=== PATIENT | male | born 1955 | race Caucasian/White ===

== ENCOUNTER 2017-12-31 21:37 | Emergency (ER) | payer OTHER ==
[2017-12-31 22:15] LABS: APPEARANCE, URINE CLEAR (CLEAR); BACTERIA, URINE AUTO NEGATIVE (NEGATIVE); BILIRUBIN, URINE AUTO NEGATIVE (NEGATIVE); BLOOD, URINE BLOOD NEGATIVE (NEGATIVE); COLOR, URINE YELLOW (YELLOW); GLUCOSE, URINE (UA) AUTO NEGATIVE (NEGATIVE); KETONE, URINE AUTO NEGATIVE (NEGATIVE); LEUKOCYTE ESTERASE, URINE AUTO NEGATIVE (NEGATIVE); MUCUS, URINE SMALL (NEGATIVE); NITRITE, URINE AUTO NEGATIVE (NEGATIVE); PROTEIN, URINE AUTO NEGATIVE (NEGATIVE); RBC, URINE AUTO 1 /HPF (0-3); SPECIFIC GRAVITY URINE AUTO 1.016 (1.002-1.035); SQUAMOUS EPITHELIAL CELL UR AU 0 /HPF (0-6); WBC, URINE AUTO 0 /HPF (0-3)
[2018-01-01 00:46] LABS: BASO % 0.7 % (0.0-1.0); EOS # 0.1 10^3/uL (0.0-0.50); EOS % 1.3 % (0.0-3.0); HEMOGLOBIN 15.4 g/dl (14.0-18.0); IMMATURE GRANULOCYTE % 0.4 % (0-3.0); LYMPH # 1.4 10^3/uL (1.5-4.5); LYMPH % 26.6 % (24.0-44.0); MEAN CORPUSCULAR HEMOGLOBIN 31.8 pg (27.0-33.0); MEAN CORPUSCULAR HGB CONC 34.2 g/dl (32.0-36.5); MEAN CORPUSCULAR VOLUME 92.8 fl (80.0-96.0); MONO # 0.5 10^3/uL (0.0-0.8); MONO % 10.1 % (0.0-5.0); NEUTROPHILS # 3.3 10^3/uL (1.8-7.7); NEUTROPHILS % 60.9 % (36.0-66.0); PLATELET COUNT, AUTOMATED 155 10^3/uL (150-450); RED BLOOD COUNT 4.85 10^6/uL (4.30-6.10); RED CELL DISTRIBUTION WIDTH 12.1 % (11.5-14.5); WHITE BLOOD COUNT 5.4 10^3/uL (4.0-10.0)
[2018-01-01] MEDS: NS 1,000 ML IV (00:48)
[2018-01-01 01:40] LABS: ALBUMIN 3.3 GM/DL (3.2-5.2); ALBUMIN/GLOBULIN RATIO 1.22 (1.00-1.93); ALKALINE PHOSPHATASE 69 U/L (45-117); ALT/SGPT 28 U/L (12-78); AMYLASE 37 U/L (25-115); ANION GAP 6 MEQ/L (8-16); AST/SGOT 17 U/L (7-37); BILIRUBIN,DIRECT 0.2 MG/DL (0.0-0.2); BILIRUBIN,TOTAL 0.6 MG/DL (0.2-1.0); BLOOD UREA NITROGEN 17 MG/DL (7-18); CALCIUM LEVEL 7.8 MG/DL (8.8-10.2); CARBON DIOXIDE LEVEL 27 MEQ/L (21-32); CHLORIDE LEVEL 108 MEQ/L (98-107); GLOMERULAR FILTRATION RATE > 60.0 (>49); GLUCOSE, FASTING 106 MG/DL (70-100); LIPASE 189 U/L (73-393); SODIUM LEVEL 141 MEQ/L (136-145)
[2018-01-01] MEDS: PANTOPRAZOLE 40MG INJ (PROTONIX) (C9113) IV (02:05)
[2018-01-01] MEDS: KETOROLAC 30 MG/ML VIAL (J1885) IV (02:07)
== END 2018-01-01 02:23 | disposition home or self-care (01) ==
LOC: M ED 01-01 02:23
DX: R10.32 Left lower quadrant pain (principal); R11.2 Nausea with vomiting, unspecified; K21.9 Gastro-esophageal reflux disease without esophagitis; E78.00 Pure hypercholesterolemia, unspecified; Z79.899 Other long term (current) drug therapy; Z88.1 Allergy status to other antibiotic agents; Z88.2 Allergy status to sulfonamides
CPT/HCPCS: C9113

== ENCOUNTER 2019-01-18 09:05 | Emergency (ER) | payer OTHER ==
[~2019-01-18] VITALS: Ht 177.8 cm; Wt 86.4 kg
[~2019-01-18 09:05] MED LIST: ATOR1TAB21 PO; FLOM0.4C39 PO; OMEP40CA2 PO
[2019-01-18] MEDS: METHOCARBAMOL 500 MG TAB PO ONE (09:37)
[2019-01-18] MEDS ORDERED: SOMA250T PO (10:26)
[2019-01-18] MEDS ORDERED: PRED10TA2 PO (10:26)
--- NOTE | 2019-01-18 10:33 | REP ---
CT lumbar spine: History: Vertebral point tenderness after a fall. Comparison is made with imaging from CT study of the abdomen and pelvis dated January 01, 2018. Technique: Helical scanning is acquired. 4 mm axial images and multiplanar re-formation images are generated. CT findings: Lumbar vertebral body heights are preserved. Alignment is normal. No fracture or collapse is seen. Pedicles and posterior elements are intact. No posterior element fracture is seen. There is no evidence of spondylolysis or spondylolisthesis. Alignment is normal. There is degenerative disc disease at each lumbar level with anterior osteophyte formation. Disc space narrowing is most pronounced L5-S1 and L4-5. There is a vacuum phenomenon in the L5-S1 disc. No neural foraminal narrowing is seen. There is diffuse disc bulging at L5-S1 and there is mild central canal stenosis at L5-S1 due to facet hypertrophy and ligamentum flavum hypertrophy in addition to the disc bulging. At L4-5, there is moderate central canal stenosis due to disc bulging ligamentum flavum and facet hypertrophy. No neural foraminal narrowing is appreciated. At L3-4, canal size is borderline. There is mild diffuse disc bulging. At L2-3, there is mild central canal stenosis due to diffuse disc bulging. At L1-2, there is minimal diffuse disc bulging. Impression: No traumatic abnormality noted. Central canal stenosis at multiple levels including L4-5 and L5-S1. Borderline canal size at L3-4. Osteoarthritic facet and diffuse degenerative disc disease. Electronically Signed by Francisco Moy MD 01/18/2019 07:57 P
[2019-01-18 10:40] VITALS: BP 174/96
== END 2019-01-18 10:41 | disposition home or self-care (01) ==
LOC: M ED 09:05
DX: M48.061 Spinal stenosis, lumbar region without neurogenic claudication (principal); M62.830 Muscle spasm of back; E78.5 Hyperlipidemia, unspecified; N40.0 Benign prostatic hyperplasia without lower urinary tract symptoms; Z87.891 Personal history of nicotine dependence; Z79.899 Other long term (current) drug therapy; Z88.1 Allergy status to other antibiotic agents; Z88.2 Allergy status to sulfonamides

== ENCOUNTER 2019-01-20 10:23 | Emergency (ER) | payer OTHER ==
[~2019-01-20] VITALS: Ht 175.3 cm; Wt 86.4 kg
[~2019-01-20 10:23] MED LIST changes: +PRED10TA2 PO; +SOMA250T PO
[2019-01-20] MEDS ORDERED: VALI5TAB PO (11:59)
[2019-01-20] MEDS ORDERED: PERCOCET 5MG/325MG TAB PO ONE (12:00)
[2019-01-20] MEDS ORDERED: KETOROLAC 60 MG/2 ML VIAL (J1885) IM ONE (12:00)
[2019-01-20] MEDS ORDERED: diazePAM 5 MG TAB PO ONE (12:00)
[2019-01-20 12:16] VITALS: BP 187/84
[2019-01-20] MEDS ORDERED: ROLLMIS8 XX ×2 (12:24→14:52)
== END 2019-01-20 12:33 | disposition home or self-care (01) ==
LOC: M ED 10:23
DX: M51.16 Intervertebral disc disorders with radiculopathy, lumbar region (principal); E78.00 Pure hypercholesterolemia, unspecified; Z88.1 Allergy status to other antibiotic agents; Z88.2 Allergy status to sulfonamides; Z79.52 Long term (current) use of systemic steroids; Z79.899 Other long term (current) drug therapy
CPT/HCPCS: 96372; 99283; J1885

== ENCOUNTER 2019-11-07 18:41 | Emergency (ER) | payer OTHER ==
[~2019-11-07] VITALS: Ht 175.3 cm; Wt 86.6 kg
[~2019-11-07 18:41] MED LIST changes: -OMEP40CA2 PO; +OMEP40CA97 PO; +ROLLMIS8 XX; +VALI5TAB PO
[2019-11-07] MEDS: LIDOCAINE 1% MDV 20ML VIAL IM ONE ×2 (21:06→21:07)
[2019-11-07] MEDS ORDERED: ADACEL/BOOSTRIX VACCINE (DIPHTH/PERTUSS/ACELL/TETANUS)0.5ML SYR (90715) IM ONE (21:45)
[2019-11-07 22:18] VITALS: BP 171/90
== END 2019-11-07 22:20 | disposition home or self-care (01) ==
LOC: M ED 18:41
DX: S61.214A Laceration without foreign body of right ring finger without damage to nail, initial encounter (principal); W25.XXXA Contact with sharp glass, initial encounter; Y92.018 Other place in single-family (private) house as the place of occurrence of the external cause; E78.5 Hyperlipidemia, unspecified; N40.0 Benign prostatic hyperplasia without lower urinary tract symptoms; Z88.1 Allergy status to other antibiotic agents; Z88.2 Allergy status to sulfonamides; Z79.899 Other long term (current) drug therapy

== ENCOUNTER → 2022-09-06 | Outpatient (CLI) | payer MEDICARE ==
[~2022-09-06] MED LIST changes: +OMEP40CA4 PO; -OMEP40CA97 PO
== END ==
LOC: M RAD 08:35
PROVIDERS: ATTEND Internal Medicine
DX: Z12.2 Encounter for screening for malignant neoplasm of respiratory organs (principal); F17.210 Nicotine dependence, cigarettes, uncomplicated

== ENCOUNTER → 2023-11-01 | Outpatient (CLI) | payer MEDICARE | LOC: M RAD 08:17 | PROVIDERS: ATTEND Internal Medicine | DX: Z12.2 Encounter for screening for malignant neoplasm of respiratory organs (principal); F17.211 Nicotine dependence, cigarettes, in remission ==

== ENCOUNTER → 2024-12-27 | Outpatient (CLI) | payer MEDICARE | LOC: M RAD 08:18 | PROVIDERS: ATTEND Internal Medicine | DX: Z12.2 Encounter for screening for malignant neoplasm of respiratory organs (principal); F17.211 Nicotine dependence, cigarettes, in remission ==

== ENCOUNTER → 2025-07-04 | Outpatient (REF) | payer MEDICARE ==
[~2025-07-04] MED LIST changes: -FLOM0.4C39 PO; +TAMS-18 PO
== END ==
LOC: M SFHCDERM 12:25
PROVIDERS: ATTEND Physician Assistant
DX: Z48.00 Encounter for change or removal of nonsurgical wound dressing (principal)